=== PATIENT | male | born 1960 | race Hispanic/Latino ===

== ENCOUNTER 2017-04-19 05:57 | Day surgery (SDC) | payer OTHER ==
[2017-04-13 13:38] VITALS: BMI 25.4
[2017-04-19] MEDS ORDERED: Propofol 10 mg/ml Inj (20 ML) ONE (07:12)
[2017-04-19] MEDS ORDERED: Midazolam 2 MG/2 ML VIAL ONE (07:12)
[2017-04-19] MEDS ORDERED: Clindamycin 600mg/50ml NS 0 MG/0 ML BAG IVPB ONE (08:22)
[2017-04-19] MEDS ORDERED: Vancomycin 1 gm/D5W 200 ml 1 GM/200 ML BAG IVPB ONE (08:31)
[2017-04-19] MEDS ORDERED: Lidocaine 1% Inj (20ml) ONE (08:31)
[2017-04-19] MEDS ORDERED: Bupivacaine HCl 0.5% PF (10 ml) Inj ONE (09:16)
[2017-04-19] MEDS ORDERED: Oxycodone/Acetaminophen 5/325 mg Tab PO ONE (09:38)
--- NOTE | 2017-04-19 09:42 | PCM.SURG1 ---
Surgeon's Initial Post Op Note - Surgeon's Notes Surgeon: Dr. Archibald Church History Teacher: PGY1, Hay[place] OMS3 Type of Anesthesia: General LMA Pre-Operative Diagnosis: Recurrent Right inguinal hernia Operative Findings: see op note Post-Operative Diagnosis: recurrent right direct inguinal hernia Operation Performed: open right inguinal hernia repair with mesh Specimen/Specimens Removed: none Estimated Blood Loss: EBL {In ML}: 10 Drains Used: No Drains Post-Op Condition: Good Date of Surgery/Procedure: 04/19/17 Time of Surgery/Procedure: 09:42
[2017-04-19] MEDS: HYDROmorphone 0.5 mg/0.5 ml ISec IVP PRN ×2 (09:48→10:00)
[2017-04-19] MEDS ORDERED: Bupivacaine-Epi 0.5%-1:200,000 PF Inj IJ ONE (10:00)
[2017-04-19 11:07] VITALS: BP 123/70; PULSE 63; RESP 18; TEMP 97.1; O2SAT 100
--- NOTE | 2017-04-19 20:23 | OP ---
PROCEDURE DATE: 04/19/2017 PREOPERATIVE DIAGNOSIS: Recurrent right inguinal hernia. POSTOPERATIVE DIAGNOSIS: Recurrent right inguinal hernia. OPERATION CARRIED OUT: Repair of recurrent direct right inguinal hernia. SURGEON: Dion Archibald Jr., MD WELDING MACHINE OPERATOR/TENDER: Dr. Lokc ANESTHESIA ADMINISTERED BY: , RUSTIC TERRAZZO SETTER INDICATIONS: A 57-year-old man with history of hernia repair as a child presents for recurrent right inguinal hernia. OPERATIVE FINDINGS: This was a direct inguinal hernia. There was no indirect sac. PHS, permanent hernia system medium size, was used. DESCRIPTION OF PROCEDURE: The patient was given general anesthesia and intravenous antibiotics. Venodyne boots were applied. Standard skin prep was carried out, including scrubbing, painting, use of a Vi-drape. After this had been done, we then injected Marcaine. We then made an incision, exposing the cord and its contents through the external oblique. After this had been done, we then deployed the permanent hernia system into the appropriate position, secured with madhuri and sutures and terminated the procedure. Blood loss was 5 mL. Wound was closed with subcuticular closure and Steri-Strips. Marcaine was again injected prior to closure. Dion Archibald Jr., MD
== END 2017-04-19 12:05 | disposition home or self-care (01) ==
LOC: C.SDS 05:57
PROVIDERS: ATTEND Surgery Vascular Surgery
DX: K40.90 Unilateral inguinal hernia, without obstruction or gangrene, not specified as recurrent (principal); E78.5 Hyperlipidemia, unspecified; N40.0 Benign prostatic hyperplasia without lower urinary tract symptoms; F17.210 Nicotine dependence, cigarettes, uncomplicated
CPT/HCPCS: 49520; C1781; J1170; J2250; J2704; J3010; J3370